=== PATIENT | male | born 1990 | race Caucasian/White ===

== ENCOUNTER 2018-06-07 13:09 | Emergency (ER) | payer BC, MEDICAID ==
--- NOTE | 2018-06-07 13:42 | ER Document Report ---
ED Medical Screen (RME) - General Chief Complaint: Leg Pain Stated Complaint: FOOT PAIN Time Seen by Provider: 06/07/18 13:34 Notes: The patient is a 27-year-old male who presents with 9 days of increased left leg swelling and pain. He tried Motrin and ice without much relief of his symptoms. He had a long car drive and he delivers pizza for living. PE: Calf tenderness. Patient in jeans and cowboy boots in RME (exam limited). I have greeted and performed a rapid initial assessment of this patient. A comprehensive ED assessment and evaluation of the patient, analysis of test results and completion of the medical decision making process will be conducted by additional ED providers. TRAVEL OUTSIDE OF THE [place] IN LAST 30 DAYS: No - Related Data Allergies/Adverse Reactions: No Known Allergies Allergy (Verified 06/07/18 13:32) Past Medical History - Immunizations Hx Diphtheria, Pertussis, Tetanus Vaccination: Yes - not within 5 years
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
[2018-06-07 15:52] VITALS: BP 130/60
--- NOTE | 2018-06-08 08:14 | XCELERA REPORT ---
[address] [address] Lower Extremity Venous Evaluation Name: DEXTER GARCIA Age: 27 yrs Gender: Male : 1990 Patient Status: Emergency Patient Location: ER Study Date: 06/07/2018 03:16 PM Procedure: Color flow and duplex imaging of the veins of the left lower extremity as well as the right Common Femoral vein. Reason For Study: LLE swelling Ordering Physician: JAYASHREE MCGUIRE Performed By: Bijal Bermudez Right Sided Venous Evaluation The right common femoral vein is fully compressible. Spontaneous and phasic flow is present in the right common femoral vein. Left Sided Venous Evaluation Normal vessel filling wall to wall, compression and augmentation as well as Colour flow down to the infrageniculate veins. Interpretation Summary No duplex evidence of DVT or obstruction in the left lower extremity nor in the right Common Femoral vein. : JAYASHREE MCGUIRE > Niko Biswas
== END 2018-06-07 15:52 | disposition home or self-care (01) ==
LOC: ER 13:09
DX: S80.12XA Contusion of left lower leg, initial encounter (principal); X58.XXXA Exposure to other specified factors, initial encounter
CPT/HCPCS: 93971; 99284